=== PATIENT | female | born 1955 | race Caucasian/White ===

== ENCOUNTER 2025-08-08 13:17 | Emergency (ER) | payer OTHER ==
[~2025-08-08] VITALS: Ht 154.9 cm; Wt 67.2 kg
--- NOTE | 2025-08-08 14:21 | ED.PDOC ---
HPI (NEURO) HPI Comments This is a 70-year-old female with past medical history of hypertension, dyslipidemia and prediabetes came to the hospital due to dizziness since yesterday. Per patient, yesterday while she was walking suddenly lost balance, fell on the ground, hit her left knee but did not hit her head. Post fall she reports of left knee pain, nausea, and mild abdominal pain. He denies loss of consciousness, blurry vision, headache, chest pain, shortness of breaths will palpitation. She also reports of same episode in October 2024 and 2 weeks back. EKGs shows normal sinus rhythm with no significant ST or T-wave changes. Home meds: Lisinopril, atorvastatin, aspirin, and vitamins supplement Surgical history: Hysterectomy and cholecystectomy Chief Complaint: Dizziness Time Seen by MD: 13:37 Mode of Arrival: Ambulatory Past Medical History PAST MEDICAL HISTORY: Denies Surgical History: Denies all surgeries TEST ENGINEER History: No Pertinent TEST ENGINEER History Family History Family History: Reviewed,noncontributory to illness, No family hx of Cancer, No family hx of DM, No family hx of Heart marsha, No family hx of HTN, No family hx ofKidney marsha, No family hx of Liver marsha, No family hx of Lung marsha, No family hx of Stroke Physical Exam General Appearance: No Apparent Distress, Normal HEENT: Normal ENT Inspection, Pharynx Normal, TMs Normal Neck: Full Range of Motion, Non-Tender, Normal, Normal Inspection Respiratory: Chest Non-Tender, Lungs Clear, No Accessory Muscle Use, No Respiratory Distress, Normal Breath Sounds Cardiovascular: No Edema, No JVD, No Murmur, No Gallop, Normal Peripheral Pulses, Regular Rate/Rhythm Breast Exam: Deferred Gastrointestinal: No Organomegaly, Non Tender, No Pulsatile Mass, Normal Bowel Sounds, Soft Genitalia: Deferred Pelvic: Deferred Rectal: Deferred Extremities: No calf tenderness, Normal capillary refill, Normal inspection, Normal range of motion, Non-tender, No pedal edema Musculoskeletal : Apperance: Normal Neurologic: Alert, pasta press operator II-XII nml as Tested, No Motor Deficits, Normal Affect, Normal Mood, No Sensory Deficits Cerebellar Function: Normal Reflexes: Normal Skin: Dry, Normal Color, Warm Lymphatic: No Adenopathy Was a procedure done? Was a procedure done?: No Differential Diagnosis (SZ) Seizure: Syncope Headache: CVA X-Ray, Labs, Meds, VS Vital Signs Date Time Temp Pulse Resp B/P (MAP) Pulse Ox O2 Delivery O2 Flow Rate FiO2 08/08/25 16:03 69 18 160/73 (102) 97 08/08/25 13:26 90 08/08/25 13:22 98.0 113 16 134/89 95 98.0 Lab Test 08/08/25 14:15 Range/Units White Blood Count 7.0 4.4-10.8 10^3/uL Red Blood Count 4.62 4.0-5.20 10^6/uL Hemoglobin 14.2 12.2-16.2 g/dL Hematocrit 41.3 36.0-46.0 % Mean Corpuscular Volume 89.5 80.0-100.0 fL Mean Corpuscular Hemoglobin 30.8 28.0-32.0 pg Mean Corpuscular Hemoglobin Concent 34.4 32.0-36.0 g/dL Red Cell Distribution Width 12.7 11.8-14.3 % Platelet Count 271 140-450 10^3/uL Mean Platelet Volume 7.5 6.9-10.8 fL Neutrophils (%) (Auto) 57.4 37.0-80.0 % Lymphocytes (%) (Auto) 33.6 10.0-50.0 % Monocytes (%) (Auto) 7.7 0.0-12.0 % Eosinophils (%) (Auto) 0.7 0.0-7.0 % Basophils (%) (Auto) 0.6 0.0-2.0 % Neutrophils # (Auto) 4.0 1.6-8.6 10 ^3/uL Lymphocytes # (Auto) 2.4 0.4-5.4 10 ^3/uL Monocytes # (Auto) 0.5 0-1.3 10 ^3/uL Eosinophils # (Auto) 0.1 0-0.8 10 ^3/uL Basophils # (Auto) 0 0-0.2 10 ^3/uL Nucleated Red Blood Cells 0.1 % Sodium Level 141 136-145 mmol/L Potassium Level 3.6 3.5-5.1 mmol/L Chloride Level 108 H 98-107 mmol/L Carbon Dioxide Level 24 20-31 mmol/L Anion Gap 9 5-15 Blood Urea Nitrogen 13 9-23 mg/dL Creatinine 0.66 0.550-1.02 mg/dL Glomerular Filtration Rate Calc 95 >90 mL/min BUN/Creatinine Ratio 19.7 10.0-20.0 Serum Glucose 92 74-106 mg/dL Calcium Level 10.5 H 8.7-10.4 mg/dL Magnesium Level 2.2 1.6-2.6 mg/dL Total Bilirubin 0.6 0.2-1.0 mg/dL Aspartate Amino Transferase (AST) 27 13-40 U/L Alanine Aminotransferase (ALT) 26 7-40 U/L Alkaline Phosphatase 149 H 46-116 U/L Total Protein 7.5 5.7-8.2 g/dL Albumin 4.7 3.2-4.8 g/dL Time of 1ST Reevaluation: 18:40 Reevaluation 1ST: Improved Patient Education/Counseling: Diagnosis, Treatment, Prognosis, Need For Follow Up Family Education/Counseling: No Family Present Comments Patient came to the hospital due to an episode of fall. Patient was vitally stable. CBC and CMP, within normal limits. Head CT scan performed, showed no significant intracranial abnormalities. EKGs performed, showed normal sinus rhythm and no significant ST or T-wave changes. Patient was given meclizine, atorvastatin and aspirin. On subsequent checkup, patient was feeling still dizzy, was not able to ambulate. Patient will be admitted for further workup and possible expert opinion. Departure 1 Departure Time of Disposition: 18:38 Impression: Primary Impression: Pre-syncope Additional Impression: Dizziness Disposition: 01 HOME / SELF CARE / HOMELESS Condition: Good Critical Care Note Critical Care Time?: No Stability Stability form required: No Heart Score Heart Score: Heart Score Response (Comments) Value History N/A 0 EKG N/A 0 Age N/A 0 Risk Factors N/A 0 Troponin N/A 0 Total 0 [facility] Aug 08, 2025 14:21
--- NOTE | 2025-08-08 14:25 | DVH ---
EXAM: CT HEAD WITHOUT CONTRAST INDICATION: fall TECHNIQUE: CT of the head without intravenous contrast. Radiation Dose Information: CT Dose: CTDI volume is 25 mGy. Dose-length product is 250 mGy*cm The dose indicators for CT are the volume Computed Tomography (CT) Dose Index (CTDIvol) and the Dose Length Product (DLP), and are measured in units of mGy and mGy-cm, respectively. These indicators are not patient dose, but values generated from the CT scanner acquisition factors. The report includes radiation exposure data for exposures received during this examination. COMPARISON: None FINDINGS: There is no evidence of acute intracranial hemorrhage, extra-axial collection, mass effect, midline s hift, herniation or hydrocephalus. The ventricles, sulci and cisterns are age appropriate. The echevarria-white differentiation is intact. Patchy periventricular and subcortical white matter hypoattenuation is nonspecific but may be related to small vessel ischemic disease. The visualized paranasal sinuses and mastoid air cells are clear. The surrounding soft tissues and osseous structures are unremarkable. IMPRESSION: No acute intracranial abnormality.
[2025-08-08 14:34] LABS: Hematocrit 41.3 % (36.0-46.0); Hemoglobin 14.2 g/dL (12.2-16.2); Mean Corpuscular Hemoglobin 30.8 pg (28.0-32.0); Mean Corpuscular Volume 89.5 fL (80.0-100.0); Nucleated Red Blood Cells % 0.1 %
[2025-08-08 14:52] LABS: Alanine Aminotransferase 26 U/L (7-40); Albumin 4.7 g/dL (3.2-4.8); Anion Gap 9 (5-15); BUN/Creatinine Ratio 19.7 (10.0-20.0); Blood Urea Nitrogen 13 mg/dL (9-23); Carbon Dioxide 24 mmol/L (20-31); Glucose 92 mg/dL (74-106); Magnesium 2.2 mg/dL (1.6-2.6); Potassium 3.6 mmol/L (3.5-5.1); Sodium 141 mmol/L (136-145); Total Protein 7.5 g/dL (5.7-8.2)
[2025-08-08 14:53] LABS: Bilirubin, Total 0.6 mg/dL (0.2-1.0)
[2025-08-08 15:02] LABS: Alkaline Phosphatase 149 U/L (46-116); Calcium 10.5 mg/dL (8.7-10.4); Chloride 108 mmol/L (98-107)
--- NOTE | 2025-08-08 17:47 | ECG ---
[facility] Test Date: 2025-08-08 Test Time: 13:26:02 Pat Name: ELISE MOYA Department: [facility] ED Patient ID: [id number] Room: Gender: F [employer]: TED : 1955 Requested By: ALEJANDRA AN Order Number: [id number] Reading MD: Measurements Intervals [place] Rate: 90 P: 78 NE: 137 QRS: 47 QRSD: 100 T: 51 QT: 384 QTc: 470 Interpretive Statements Sinus rhythm Low voltage, precordial leads Minimal ST depression, inferior leads Please click the below link to view image of tracing.
[2025-08-08] MEDS: ATORVASTATIN 20 MG TAB PO ONE (19:00)
[2025-08-08] MEDS: MECLIZINE HCL 25 MG TAB PO ONE (19:36)
[2025-08-08 21:20] VITALS: BP 156/52; PULSE 69; RESP 16; TEMP 97.6; O2SAT 96
== END 2025-08-08 21:30 | disposition short-term general hospital (02) ==
LOC: ER 13:17
DX: R55 Syncope and collapse (principal); I10 Essential (primary) hypertension; E78.5 Hyperlipidemia, unspecified; Z90.49 Acquired absence of other specified parts of digestive tract; Z90.710 Acquired absence of both cervix and uterus; W18.39XA Other fall on same level, initial encounter; Y93.01 Activity, walking, marching and hiking; Y92.89 Other specified places as the place of occurrence of the external cause; Y99.8 Other external cause status
CPT/HCPCS: 36415; 70450; 80053; 82947; 83735; 85025; 93005; 99285; J8597